=== PATIENT | male | born 1965 | race Caucasian/White ===

== ENCOUNTER → 2018-08-24 | Emergency (ER) | END | disposition home or self-care (01) ==

== ENCOUNTER 2019-03-24 17:39 | Emergency (ER) | payer OTHER ==
[~2019-03-24] VITALS: Ht 190.5 cm; Wt 97.9 kg
[~2019-03-24 17:39] MED LIST: IBUP-1542 PO
[2019-03-24 17:46] VITALS: BP 116/72; PULSE 72; RESP 18; Ht 190.5 cm; Wt 97.9 kg
[2019-03-24] MEDS ORDERED: IBUPROFEN 600 MG TAB PO ONE (18:30)
--- NOTE | 2019-03-24 19:41 | ERD ---
ER Documentation Chief Complaint Chief Complaint rt foot pain ROS All systems reviewed and are negative except as per history of present illness. Medications Home Meds Active Scripts Ibuprofen* (Motrin*) 600 Mg Tab, 600 MG PO Q6, #30 TAB Prov:REGGIE MARQUEZ PA-C 08/24/18 Allergies Allergies: Coded Allergies: No Known Allergy (Unverified , 08/24/18) PMhx/Soc Medical and Surgical Hx: pt denies Medical Hx, pt denies Surgical Hx History of Surgery: Yes Anesthesia Reaction: No Hx Neurological Disorder: No Hx Respiratory Disorders: No Hx Cardiac Disorders: No Hx Psychiatric Problems: No Hx Miscellaneous Medical Probl: Yes Hx Alcohol Use: Yes (2 BEERS A DAY) Hx Substance Use: No Hx Tobacco Use: Yes (QUIT 15 YRS AGO) Smoking Status: Former smoker Physical Exam Vitals Vital Signs Date Temp Pulse Resp B/P (MAP) Pulse Ox O2 O2 Flow FiO2 Time Delivery Rate 03/24/19 98.6 72 18 116/72 97 17:46 (87) Physical Exam Const: No acute distress Head: Atraumatic Eyes: Normal Conjunctiva ENT: Normal External Ears, Nose and Mouth. Neck: Full range of motion. No meningismus. Resp: Clear to auscultation bilaterally Cardio: Regular rate and rhythm, no murmurs Abd: Soft, non tender, non distended. Normal bowel sounds Skin: No petechiae or rashes Back: No midline or flank tenderness Ext: No cyanosis, or edema Neur: Awake and alert Psych: Normal Mood and Affect Results 24 hrs Current Medications Medications Dose Sig/Radha Start Time Status Last (Trade) Ordered Route PRN Stop Time Admin Dose Reason Admin Ibuprofen 600 mg ONCE ONCE 03/24/19 DC 03/24/19 (Motrin) PO 18:30 18:27 03/24/19 18:31 Departure Diagnosis: Primary Impression: Injury of foot Encounter type: initial encounter Laterality: right Qualified Codes: S99.921A - Unspecified injury of right foot, initial encounter Condition: Fair Patient Instructions: Contusion, Foot, Sprain Foot Referrals: [facility] YOU HAVE RECEIVED A MEDICAL SCREENING EXAM AND THE RESULTS INDICATE THAT YOU DO NOT HAVE A CONDITION THAT REQUIRES URGENT TREATMENT IN THE EMERGENCY DEPARTMENT. FURTHER EVALUATION AND TREATMENT OF YOUR CONDITION CAN WAIT UNTIL YOU ARE SEEN IN YOUR DOCTORS OFFICE WITHIN THE NEXT 1-2 DAYS. IT IS YOUR RESPONSIBILITY TO MAKE AN APPOINTMENT FOR FOLOW-UP CARE. IF YOU HAVE A PRIMARY DOCTOR --you should call your primary doctor and schedule an appointment IF YOU DO NOT HAVE A PRIMARY DOCTOR YOU CAN CALL OUR PHYSICIAN REFERRAL HOTLINE AT IF YOU CAN NOT AFFORD TO SEE A PHYSICIAN YOU CAN CHOSE FROM THE FOLLOWING [facility] [address] [facility] [address] [facility] [address] [facility] [facility] [address] [facility] [address] [facility]. [facility] [address] [facility]. [facility]. [address] Additional Instructions: Call your primary care doctor TOMORROW for an appointment during the next 1-2 days.See the doctor sooner or return here if your condition worsens before your appointment time. KAYLEE KINNEY DO Mar 24, 2019 19:41
== END 2019-03-24 19:45 | disposition home or self-care (01) ==
LOC: FTE 17:39
DX: S99.921A Unspecified injury of right foot, initial encounter (principal); X58.XXXA Exposure to other specified factors, initial encounter; Y92.9 Unspecified place or not applicable; Z87.891 Personal history of nicotine dependence
CPT/HCPCS: 73630